=== PATIENT | female | born 1995 | race Caucasian/White ===

== ENCOUNTER → 2017-01-01 | Outpatient (CLI) | payer OTHER | END | disposition home or self-care (01) | LOC: C.FOODA 09:35 | PROVIDERS: ATTEND Physician Assistant | DX: R60.9 Edema, unspecified (principal) ==

== ENCOUNTER 2019-07-20 03:20 | Inpatient (IN) ==
[2019-07-20] MEDS ORDERED: LACTATED RINGER'S 1,000 ML IV PRN (04:12)
[2019-07-20] MEDS ORDERED: OXYTOCIN 30 UNITS/500 ML BAG IV PRN ×3 (04:12→14:08)
--- NOTE | 2019-07-20 04:40 | History & Physical Report ---
Date of Service July 20, 2019 Assessment & Plan (1) Uterine contractions at greater than 20 weeks of gestation: Patient is a 24 yo t 40.1 wks with ctxs, cervical change VSS Afebrile FHR reassuring GBS negative Being admitted for labor Denies pain management for now, likes to ambulate History of Present Illness Chief Complaint: Patient is a 24 yo at 40.1 wks, started to have ctxs last night around 1140 pm and got closer and more painful No LOF but has mild/ light VB since ctxs started +FM Her has been uncomplicated GBS negative Primary Care Provider: Suzi Esposito PA-C Allergies Allergy/AdvReac Type Severity Reaction Status Date / Time montelukast [From Singulair] AdvReac migraines, Verified 07/20/19 03:40 vomiting Home Medications Home Medications Medication Instructions Recorded Confirmed Type vit-iron fum-folic ac 1 tab PO DAILY 03/23/19 07/20/19 History [ Vitamin] albuterol sulfate [ProAir HFA] 2 puff INHALATION Q6H PRN 05/26/19 07/20/19 History Patient History Medical History Asthma controlled Scoliosis Minimal levocurvature of the mid lumbar and upper thoracic spine per 2017 x- ray Surgical History History of lumbar fusion T5-L1 fusion 2/2 scoliosis Social History Preferred Language: Slovenian Communication Ability: Effective Beliefs That Will Affect Care: None marital status: Current Living Situation: Spouse Other Information That Helps Us Care for You: No Feels Safe at Home: Yes Smoking Status: Never smoker Hx Alcohol Use: No (no ETOH with ) Hx Substance Use: No [employer] History Denies h/o HSV/ GC/ Chlamydia Review of Systems All systems reviewed & are unremarkable except as noted in HPI & below Physical Exam Constitutional: WD/WN, vitals as above well developed and well nourished Comfortably smiling Genitourinary: VE: 5 cm/ 70%/ -2, vertex Results & Data Vital Signs (Past 12 Hours) Vital Signs Temp Pulse Resp BP 07/20/19 03:46 36.5 C 72 18 118/79 07/20/19 03:32 36.5 C 72 18 118/79 Monitoring External Monitor 130's, categ I Tocodynamometer Ctxs 2-5 min
[2019-07-20 04:46] LABS: Hematocrit (blood only) 36.6 % (37-47); Hemoglobin 12.7 g/dL (12.0-16.0); Mean Corpuscular Hemoglobin 30.5 pg (25-34); Mean Corpuscular Volume 87.8 fL (80-100); Mean Platelet Volume 11.1 fL (7.4-10.4); Platelet Count 172 K/uL (130-400); RDW Coefficient of Variation 13.4 % (11.5-14.5); RDW Standard Deviation 42.6 fL (36.4-46.3); Red Blood Count 4.17 M/uL (4.2-5.4); White Blood Count 14.81 K/uL (4.8-10.8)
[2019-07-20 04:47] LABS: Mean Corpuscular Hgb Conc 34.7 g/dL (32-36)
[2019-07-20] MEDS ORDERED: BUTORPHANOL TARTRATE 1 MG/ML VIAL ONE ×2 (10:05→11:40)
[2019-07-20] MEDS ORDERED: BUTORPHANOL TARTRATE 1 MG/ML VIAL IV PRN (12:12)
[2019-07-20] MEDS ORDERED: fentaNYL citrate 100 MCG/2 ML VIAL ONE (12:27)
[2019-07-20] MEDS ORDERED: ePHEDrine sulfate 50 MG/ML AMP ONE (12:27)
[2019-07-20] MEDS ORDERED: BUPIVACAINE 0.25% 30 ML VIAL ONE (12:28)
[2019-07-20] MEDS ORDERED: fentaNYL 2MCG/ML ROPIV 1.25MG/ML 100 ML BAG EPI ONE (12:28)
[2019-07-20] MEDS ORDERED: SUPERCREAM 0.870% 15 GM JAR EXT PRN (14:08)
[2019-07-20] MEDS ORDERED: ACETAMINOPHEN W/CODEINE #3 1 TAB PO PRN (14:08)
[2019-07-20] MEDS ORDERED: DIPHTHERIA/TETANUS/PERTUSSIS 0.5 ML SYR/VIAL IM ONE (14:08)
[2019-07-20] MEDS ORDERED: HYDROCORTISONE ACETATE 25 MG SUPP PR PRN (14:08)
[2019-07-20] MEDS ORDERED: BENZOCAINE 20% AER SPR 82.5 GM CAN EXT PRN (14:08)
[2019-07-20] MEDS ORDERED: ACETAMINOPHEN 325 MG TAB PO PRN (14:08)
[2019-07-20] MEDS ORDERED: BISACODYL 10 MG SUPP PR PRN (14:08)
[2019-07-20] MEDS ORDERED: OXYCODONE/ACETAMINOPHEN 5mg/325mg TAB PO PRN (14:08)
--- NOTE | 2019-07-20 14:25 | Delivery Summary ---
DATE OF OPERATION: 07/20/2019 Mrs. Edwards was admitted in active labor at 40 weeks and 1 day. Blood type is A positive. She is now 1, para 1. She had a spontaneous unstimulated labor. Her only pain medications were about 2 doses of Stadol 1 mg IV. Membranes were ruptured surgically at about 8-9 cm and she went on to deliver a live male via direct occiput anterior position over an intact perineum. Infant was suctioned through the mouth and the nose. Shoulders were delivered without difficulty. Cord was clamped, cut by the patient's mother. Then cord blood was taken. With IV Pitocin, the placenta was removed intact. Inspection of the perineum revealed first degree vaginal laceration that extended up the left side of the labia majora. This whole area was infiltrated with local with epinephrine. The laceration was quite superficial and I used a running 3-0 chromic to approximate the vaginal mucosa out to beyond the hymenal ring and then approximate the skin of the labia with a continuous suture and then tied it. Following this, hemostasis was excellent. Vaginal exam revealed no hematoma formation or sponges in the vagina. Estimated blood loss was 300 mL. Apgars were deferred to the nurses and placenta was sent for exam due to light meconium. I attest to the content of the Intraoperative Record and any orders documented therein. Any exception s are noted below.
[2019-07-20] MEDS: DOCUSATE SODIUM 100 MG CAP PO SCH (20:08)
[2019-07-21] MEDS: IBUPROFEN 600 MG TAB PO PRN ×3 (01:41→23:05)
[2019-07-21 07:38] LABS: Hematocrit (blood only) 33.6 % (37-47); Hemoglobin 11.1 g/dL (12.0-16.0); Mean Corpuscular Hemoglobin 29.8 pg (25-34); Mean Corpuscular Volume 90.1 fL (80-100); Mean Platelet Volume 11.5 fL (7.4-10.4); Platelet Count 154 K/uL (130-400); RDW Coefficient of Variation 13.7 % (11.5-14.5); RDW Standard Deviation 44.8 fL (36.4-46.3); Red Blood Count 3.73 M/uL (4.2-5.4); White Blood Count 15.68 K/uL (4.8-10.8)
[2019-07-21] MEDS: DOCUSATE SODIUM 100 MG CAP PO SCH ×2 (08:23→20:25)
[2019-07-21] MEDS: FERROUS SULFATE 325 MG TAB PO SCH (08:23)
[2019-07-21] MEDS: PRENATAL VITAMIN 1 TAB PO SCH (08:24)
--- NOTE | 2019-07-21 10:03 | Obstetrical Progress Note ---
Date of Service July 21, 2019 Assessment & Plan (1) normal course: PPD #1 pt doing well continue day #1 care Subjective Ambulation: ambulating normally Voiding: no voiding problems Passing Gas:: Yes Diet Tolerance:: regular diet Lochia:: Small Feeding Type:: breast feeding Review of Systems All systems reviewed & are unremarkable except as noted in HPI & below Physical Exam Constitutional WD/WN, vitals as above well developed and well nourished Eyes PERRL, conjunctivae normal, anicteric sclerae Neck trachea midline, no thyromegaly Respiratory normal respiratory effort, lungs clear to auscultation Auscultation: no crackles, no rales and no wheezes Cardiovascular RRR, no murmur, no edema Gastrointestinal (Abdomen) normal bowel sounds, soft, nontender, no hepatosplenomegaly Uterus is below umbilicus Musculoskeletal no cyanosis or clubbing, extremities motor strength 5/5 Skin no rashes, warm and dry Neurologic patellar DTR's 2+ bilat, sensation intact Psychiatric A+Ox3, euthymic affect Genitourinary normal external appearance Results & Data Vital Signs (Past 12 Hours) Vital Signs Temp Pulse Resp BP Pulse Ox 07/21/19 08:10 36.7 C 76 20 107/66 100 07/21/19 04:20 36.6 C 86 18 122/68 07/20/19 23:20 36.9 C 80 18 116/65
[2019-07-21] MEDS ORDERED: BISACODYL 5 MG TABEC PO SCH (20:00)
[2019-07-22 06:30] LABS: Hematocrit (blood only) 34.9 % (37-47); Hemoglobin 11.5 g/dL (12.0-16.0)
[2019-07-22 08:57] LABS: Basophils # (auto) 0.03 K/uL (0-0.2); Basophils % (auto) 0.2 %; Eosinophils # (auto) 0.42 K/uL (0-0.5); Eosinophils % (auto) 3.3 %; Hematocrit (blood only) 36.7 % (37-47); Hemoglobin 12.5 g/dL (12.0-16.0); Immature Granulocytes # (auto) 0.04 K/uL (0.00-0.02); Immature Granulocytes % (auto) 0.3 %; Lymphocytes # (auto) 1.95 K/uL (1.2-3.4); Lymphocytes % (auto) 15.4 %; Mean Corpuscular Hemoglobin 30.6 pg (25-34); Mean Corpuscular Hgb Conc 34.1 g/dL (32-36); Mean Corpuscular Volume 89.7 fL (80-100); Mean Platelet Volume 10.7 fL (7.4-10.4); Monocytes # (auto) 0.78 K/uL (0.11-0.59); Monocytes % (auto) 6.1 %; Neutrophils # (auto) 9.48 K/uL (1.4-6.5); Neutrophils % (auto) 74.7 %; Platelet Count 185 K/uL (130-400); RDW Coefficient of Variation 13.8 % (11.5-14.5); RDW Standard Deviation 45.4 fL (36.4-46.3); Red Blood Count 4.09 M/uL (4.2-5.4)
--- NOTE | 2019-07-22 09:20 | Obstetrical Progress Note ---
Date of Service July 22, 2019 Subjective Patient is seen and examined. She feels well, no complaints. Ambulating without dizziness Voiding without difficulty Tolerating regular diet with out N&V Bleeding is minimal No fever/ chills/ CP/ SOB/ N&V/ Leg pain Breast feeding without problems Vital Signs Temp Pulse Resp BP Pulse Ox 07/22/19 00:10 36.7 C 67 19 118/74 97 07/21/19 16:30 36.5 C 90 18 119/75 98 07/21/19 11:56 36.7 C 76 20 108/68 Intake and Output 07/21/19 07/22/19 07/22/19 22:59 06:59 14:59 Intake Total 883.95 / 883.95 Balance 883.95 / 883.95 Intake: IV 883.95 / 883.95 Lr 1,000 ml @ 125 mls/hr IV . 383.95 / 383.95 Q8H PRN Rx#:[id number] PITOCIN 30 units In 500 ml @ 20 500 / 500 UNITS/HR 333.333 mls/hr IV . Q1H30M PRN Rx#:[id number] Lab Results 07/20/19 07/21/19 07/22/19 Range/Units 04:19 07:13 06:16 WBC 14.81 H 15.68 H (4.8-10.8) K/uL RBC 4.17 L 3.73 L (4.2-5.4) M/uL Hgb 12.7 11.1 L 11.5 L (12.0-16.0) g/dL Hct 36.6 L 33.6 L 34.9 L (37-47) % MCV 87.8 90.1 (80-100) fL MCH 30.5 29.8 (25-34) pg MCHC 34.7 33.0 (32-36) g/dL RDW Std Deviation 42.6 44.8 (36.4-46.3) fL RDW Coeff of Samm 13.4 13.7 (11.5-14.5) % Plt Count 172 154 (130-400) K/uL MPV 11.1 H 11.5 H (7.4-10.4) fL Immature Gran % (Auto) % Neut % (Auto) % Lymph % (Auto) % Florence % (Auto) % Eos % (Auto) % Baso % (Auto) % Immature Gran # (Auto) (0.00-0.02) K/uL Neut # (Auto) (1.4-6.5) K/uL Lymph # (Auto) (1.2-3.4) K/uL Florence # (Auto) (0.11-0.59) K/uL Eos # (Auto) (0-0.5) K/uL Baso # (Auto) (0-0.2) K/uL 07/22/19 Range/Units 08:34 WBC 12.70 H (4.8-10.8) K/uL RBC 4.09 L (4.2-5.4) M/uL Hgb 12.5 (12.0-16.0) g/dL Hct 36.7 L (37-47) % MCV 89.7 (80-100) fL MCH 30.6 (25-34) pg MCHC 34.1 (32-36) g/dL RDW Std Deviation 45.4 (36.4-46.3) fL RDW Coeff of Samm 13.8 (11.5-14.5) % Plt Count 185 (130-400) K/uL MPV 10.7 H (7.4-10.4) fL Immature Gran % (Auto) 0.3 % Neut % (Auto) 74.7 % Lymph % (Auto) 15.4 % Florence % (Auto) 6.1 % Eos % (Auto) 3.3 % Baso % (Auto) 0.2 % Immature Gran # (Auto) 0.04 H (0.00-0.02) K/uL Neut # (Auto) 9.48 H (1.4-6.5) K/uL Lymph # (Auto) 1.95 (1.2-3.4) K/uL Florence # (Auto) 0.78 H (0.11-0.59) K/uL Eos # (Auto) 0.42 (0-0.5) K/uL Baso # (Auto) 0.03 (0-0.2) K/uL PE: General: Alert, orientedx3, NAD Abd: soft, NT, fundus firm, below Umbilicus Perineum intact, Lochia rubra minimal Ext; NT, no edema AP: 24 yo s/p , ppd# 2 VSS Afebrile doing well Continue routine care All questions were answered D/C home , f/u in office Results & Data Vital Signs (Past 12 Hours) Vital Signs Temp Pulse Resp BP Pulse Ox 07/22/19 00:10 36.7 C 67 19 118/74 97
[2019-07-22] MEDS: FERROUS SULFATE 325 MG TAB PO SCH (09:30)
[2019-07-22] MEDS: DOCUSATE SODIUM 100 MG CAP PO SCH (09:30)
[2019-07-22] MEDS: PRENATAL VITAMIN 1 TAB PO SCH (09:30)
[2019-07-22] MEDS: IBUPROFEN 600 MG TAB PO PRN ×2 (09:30→13:43)
== END 2019-07-22 14:40 | disposition home or self-care (01) | DRG 807 ==
LOC: OPB 03:20 → 4S1 03:25 → 4S2 17:47

== ENCOUNTER 2021-06-03 13:37 | Inpatient (IN) ==
[2021-06-03] MEDS ORDERED: LACTATED RINGER'S 1,000 ML IV PRN (14:22)
[2021-06-03 14:40] LABS: Hemoglobin 13.1 g/dL (12.0-16.0); Mean Corpuscular Hemoglobin 31.7 pg (25-34); Mean Corpuscular Hgb Conc 33.6 g/dL (32-36); Mean Corpuscular Volume 94.4 fL (80-100); Mean Platelet Volume 10.8 fL (7.4-10.4); Platelet Count 208 K/uL (130-400); RDW Coefficient of Variation 12.8 % (11.5-14.5); RDW Standard Deviation 44.2 fL (36.4-46.3); Red Blood Count 4.13 M/uL (4.2-5.4); White Blood Count 11.12 K/uL (4.8-10.8)
--- NOTE | 2021-06-03 20:09 | Labor Progress Brief Note ---
Date of Service June 03, 2021 Subjective Reason For Note: Routine Evaluation and Change In Status Assessment & Plan Admission and Anticipated Discharge Date Admission Date: June 03, 2021 Physical Exam Constitutional: WD/WN, vitals as above comfortable Genitourinary: no vaginal lesions, no adnexal mass normal external appearance OB Exam Abdomen: + heart tones, + vertex, + estimated weight (7-8 lbs.) and + irregular contractions Manual OB Exam: + cervical dilation 6 cm and 7 cm, + cervical effacement 70% and + station -2 OB Exam Monitor Tracing: + external FHT monitor used, + external uterine monitor used, + category I and + normal FHT variability Will admit in early labor Results & Data ([facility]) Vital Signs (Past 12 Hours) Vital Signs Temp Pulse Resp BP 06/03/21 19:57 95 H 112/77 06/03/21 19:09 36.9 C 81 117/71 06/03/21 18:27 99 H 113/72 06/03/21 14:01 36.9 C 20 06/03/21 13:52 95 H 118/67
[2021-06-03] MEDS ORDERED: BUTORPHANOL TARTRATE 1 MG/ML VIAL IV PRN (20:26)
--- NOTE | 2021-06-03 22:00 | Labor Progress Brief Note ---
Date of Service June 03, 2021 Assessment & Plan Admission and Anticipated Discharge Date Admission Date: June 03, 2021 Physical Exam Genitourinary: Manual OB Exam: + cervical dilation 7 cm and 8 cm, + cervical effacement 70% and + station -2 OB Exam Monitor Tracing: + external FHT monitor used, + external uterine monitor used, + category I and + normal FHT variability Results & Data ([place]) Vital Signs (Past 12 Hours) Vital Signs Temp Pulse Resp BP 06/03/21 20:53 36.9 C 91 H 18 115/78 06/03/21 19:57 95 H 112/77 06/03/21 19:09 36.9 C 81 117/71 06/03/21 18:27 99 H 113/72 06/03/21 14:01 36.9 C 20 06/03/21 13:52 95 H 118/67
--- NOTE | 2021-06-03 23:03 | Labor Progress Brief Note ---
Date of Service June 03, 2021 Assessment & Plan Admission and Anticipated Discharge Date Admission Date: June 03, 2021 Physical Exam Genitourinary: Manual OB Exam: + cervical dilation 9 cm, + cervical effacement 100%, + station 0 and + amniotic fluid clear AROM with Amni-hook clear fluid Results & Data [facility]) Vital Signs (Past 12 Hours) Vital Signs Temp Pulse Resp BP 06/03/21 20:53 36.9 C 91 H 18 115/78 06/03/21 19:57 95 H 112/77 06/03/21 19:09 36.9 C 81 117/71 06/03/21 18:27 99 H 113/72 06/03/21 14:01 36.9 C 20 06/03/21 13:52 95 H 118/67
[2021-06-04] MEDS: OXYTOCIN 30 UNITS/500 ML BAG IV PRN ×2 (00:13→01:14)
--- NOTE | 2021-06-04 00:23 | Delivery Summary ---
Vaginal Delivery Summary Date of Service June 04, 2021 Vaginal Delivery Summary Delivery Note live male LULA over intact perineum with delayed cord clamping and Apgars 8/9 weight pending. Cord blood obtained followed by spontaneous delivery of intact placenta. No tears. EBL 100 ml. Final sponge and instrument count are correct. Mom and baby stable.
[2021-06-04] MEDS ORDERED: OXYTOCIN 30 UNITS/500 ML BAG IV PRN (00:42)
[2021-06-04] MEDS ORDERED: DIPHTHERIA/TETANUS/PERTUSSIS 0.5 ML SYR/VIAL IM ONE (00:42)
[2021-06-04] MEDS ORDERED: HYDROCORTISONE ACETATE 25 MG SUPP PR PRN (00:42)
[2021-06-04] MEDS ORDERED: BENZOCAINE 20% AER SPR 82.5 GM CAN EXT PRN (00:42)
[2021-06-04] MEDS ORDERED: ACETAMINOPHEN 325 MG TAB PO PRN (00:42)
[2021-06-04] MEDS ORDERED: bisacodyL 10 MG SUPP PR PRN (00:42)
[2021-06-04] MEDS ORDERED: SUPERCREAM 0.870% 15 GM JAR EXT PRN (00:42)
[2021-06-04] MEDS: IBUPROFEN 600 MG TAB PO PRN ×2 (01:09→07:04)
[2021-06-04] MEDS: DOCUSATE SODIUM 100 MG CAP PO SCH ×2 (08:30→21:24)
[2021-06-04] MEDS: PRENATAL VITAMIN 1 TAB PO SCH (08:30)
[2021-06-04] MEDS: FERROUS SULFATE 325 MG TAB PO SCH (08:30)
[2021-06-04] MEDS ORDERED: NON-FORMULARY MEDICATION (Prenatal Vit-Iron Fum-Folic Ac [Prenatal Vitamin] 27 mg iron- 0. PO SCH (09:00)
[2021-06-05 06:38] LABS: Hematocrit (blood only) 35.6 % (37-47); Mean Corpuscular Hemoglobin 31.5 pg (25-34); Mean Corpuscular Hgb Conc 33.7 g/dL (32-36); Mean Corpuscular Volume 93.4 fL (80-100); Mean Platelet Volume 10.8 fL (7.4-10.4); Platelet Count 185 K/uL (130-400); RDW Standard Deviation 44.4 fL (36.4-46.3); Red Blood Count 3.81 M/uL (4.2-5.4); White Blood Count 11.83 K/uL (4.8-10.8)
--- NOTE | 2021-06-05 07:46 | Obstetrical Progress Note ---
Date of Service June 05, 2021 Assessment & Plan Admission and Anticipated Discharge Date Admission Date: June 03, 2021 Subjective abdomen soft and non tender no calf tenderness ambulating well vaginal bleeding scant hgb 12.0 Results & Data ([facility]) Vital Signs (Past 12 Hours) Vital Signs Temp Pulse Resp BP Pulse Ox 06/04/21 23:32 36.6 C 68 16 108/73 96
[2021-06-05] MEDS: IBUPROFEN 600 MG TAB PO PRN (09:39)
[2021-06-05] MEDS: PRENATAL VITAMIN 1 TAB PO SCH (09:40)
[2021-06-05] MEDS: FERROUS SULFATE 325 MG TAB PO SCH (09:40)
[2021-06-05] MEDS ORDERED: bisacodyL 5 MG TABEC PO SCH (20:00)
== END 2021-06-05 13:45 | disposition home or self-care (01) | DRG 807 ==
LOC: OPB 13:37 → 4S1 13:40 → 4S2 06-04 02:55
DX: Z3A.37 37 weeks gestation of pregnancy; O80 Encounter for full-term uncomplicated delivery; Z37.0 Single live birth

== ENCOUNTER 2023-05-04 15:38 | Inpatient (IN) ==
[2023-05-04] MEDS ORDERED: LIDOCAINE 1% LOCAL 20 ML VIAL INFIL PRN (16:35)
[2023-05-04] MEDS ORDERED: OXYTOCIN 30 UNITS/500 ML BAG IV PRN ×2 (16:35→23:29)
--- NOTE | 2023-05-04 16:39 | Labor Progress Brief Note ---
Date of Service May 04, 2023 Assessment & Plan (1) : Plan: at 39+ weeks FHR CAT1 Ctx 4-6min VE 5-6/90/bulging membranes Results & Data Vital Signs (Past 12 Hours) Vital Signs Temp Pulse Resp BP O2 Del Method 05/04/23 15:52 36.8 C 18 Room Air 05/04/23 15:41 36.8 C 83 18 124/67
[2023-05-04 17:06] LABS: Hematocrit (blood only) 36.6 % (37.0-47.0); Hemoglobin 12.7 g/dl (12.0-16.0); Mean Corpuscular Hemoglobin 31.9 pg (25.0-34.0); Mean Corpuscular Hgb Conc 34.7 g/dL (32.0-36.0); Mean Platelet Volume 10.8 fL (9.4-12.4); Platelet Count 181 K/uL (130-400); RDW Coefficient of Variation 12.4 % (11.5-14.5); RDW Standard Deviation 41.3 fL (36.4-46.3); Red Blood Count 3.98 M/uL (4.20-5.40); White Blood Count 13.41 K/ul (4.8-10.8)
[2023-05-04] MEDS: LACTATED RINGER'S 1,000 ML IV PRN ×2 (17:06→19:05)
[2023-05-04] MEDS ORDERED: ePHEDrine sulfate 50 MG/ML AMP ONE (17:58)
[2023-05-04] MEDS ORDERED: LIDOCAINE 2%/EPINEPHRINE 1:200,000 20 ML PF ONE (17:58)
[2023-05-04] MEDS ORDERED: BUPIVACAINE 0.25% PF 30 ML VIAL ONE (17:58)
[2023-05-04] MEDS ORDERED: SODIUM CHLORIDE 0.9% PF INJ 10 ML VIAL ONE (17:58)
[2023-05-04] MEDS ORDERED: fentaNYL citrate PF 100 MCG/2 ML VIAL ONE (17:58)
[2023-05-04] MEDS ORDERED: fentaNYL 2MCG/ML ROPIVACAINE 1.25MG/ML 100 ML BAG EPI ONE (17:59)
[2023-05-04] MEDS ORDERED: NALBUPHINE HCL INJ 10 MG/ML AMP IV PRN (20:54)
[2023-05-04] MEDS ORDERED: SODIUM CHLORIDE 0.9% PF INJ 10 ML VIAL EPI STA (20:54)
[2023-05-04] MEDS ORDERED: ROPIVACAINE 0.5% PF 5 MG/ML 20 ML VIAL EPI PRN (20:54)
[2023-05-04] MEDS ORDERED: BUPIVACAINE 0.25% PF 30 ML VIAL EPI STA (20:54)
[2023-05-04] MEDS ORDERED: SODIUM CHLORIDE 0.9% PF INJ 10 ML VIAL EPI PRN (20:54)
[2023-05-04] MEDS ORDERED: fentaNYL citrate PF 100 MCG/2 ML VIAL EPI STA (20:54)
[2023-05-04] MEDS ORDERED: NALOXONE HCL 0.4 MG/1 ML VIAL/CARP IV PRN (20:54)
[2023-05-04] MEDS ORDERED: ONDANSETRON INJ 2 MG/ML 2 ML VIAL IV PRN (20:54)
[2023-05-04] MEDS ORDERED: fentaNYL 2MCG/ML ROPIVACAINE 1.25MG/ML 100 ML BAG EPI PRN (20:54)
[2023-05-04] MEDS ORDERED: LIDOCAINE 2%/EPINEPHRINE 1:200,000 20 ML PF EPI STA (20:54)
[2023-05-04] MEDS ORDERED: diphenhydrAMINE 50 MG/ML VIAL IV PRN (20:54)
[2023-05-04] MEDS ORDERED: NALOXONE HCL 1 MG in SODIUM CHLORIDE 0.9% 1000ML 1,000 ML IV PRN (20:54)
[2023-05-04] MEDS ORDERED: LIDOCAINE 2% MPF LOCAL 5 ML VIAL EPI PRN (20:54)
[2023-05-04] MEDS ORDERED: fentaNYL citrate PF 100 MCG/2 ML VIAL EPI PRN (20:54)
[2023-05-04] MEDS ORDERED: ePHEDrine sulfate 50 MG/ML AMP IV PRN (20:54)
[2023-05-04] MEDS ORDERED: BUPIVACAINE 0.25% PF 30 ML VIAL EPI PRN (20:54)
--- NOTE | 2023-05-04 20:56 | Anesthesiology Consultation ---
Date of Service May 04, 2023 Assessment & Plan Chart Review Chart Review: Patient NOT seen in Pre Admission Testing and Acceptable Risk for Labor Epidural Consults Requested none ASA ASA2 Proposed Anesthesia Anesthesia Type: Labor Epidural Risk / Benefits Reviewed With: PT / POA / Parent / Guardian, Accepts Plan and Informed Consent Obtained History Height/Weight Height: 5 ft 8 in Weight: 88 kg Allergies Allergy/AdvReac Type Severity Reaction Status Date / Time montelukast [From Singulair] AdvReac migraines, Verified 04/24/23 22:52 vomiting Medications Home Medications Medication Instructions Recorded Confirmed Last Taken vitamins-iron fumarate 27 1 tab PO DAILY 03/23/19 05/04/23 05/04/23 15:00 mg iron-folic acid 0.8 mg tablet ( Vitamin) Active Medications Generic Name Dose Route Start Last Admin Trade Name Freq PRN Reason Stop Dose Admin Lactated Ringer's 1,000 mls @ 125 mls/hr 05/04/23 16:35 05/04/23 19:05 Lr IV 05/06/23 16:34 125 mls/hr .Q8H PRN Administration L&D Protocol Protocol Past Medical History Medical History Asthma controlled Scoliosis Minimal levocurvature of the mid lumbar and upper thoracic spine per 2017 x- ray Spontaneous vaginal delivery [facility] [place] [place] 06/2019 Exercise / Class Metabolic Activity II 4-5 Yardwork/Stairs/Walk up hill Past Surgical History Surgical History History of lumbar fusion T5-L1 fusion 2/2 scoliosis Past Anesthesia History No Hx of Anesthesia Complications and No Family Hx of Anesthesia Complications History of PONV No Hx of PONV and No Hx of Motion Sickness Social History Smoking Status: Never smoker Do You Dip or Chew Tobacco: No Hx Alcohol Use: No Hx Substance Use: No substance use type: does not use Physical Exam Vital Signs Last Vital Signs Temp 36.8 C 05/04/23 19:15 Pulse 75 05/04/23 20:53 Resp 18 05/04/23 19:15 BP 105/59 L 05/04/23 20:47 Pulse Ox 100 05/04/23 20:53 O2 Del Method Room Air 05/04/23 15:52 ENMT Mouth: no dentition abnormality Thyromental Distance: > or= 3.5 Finger Breadths Mallampati Class: II Neck normal visual inspection Respiratory normal respiratory effort Auscultation: lungs clear to auscultation bilaterally Cardiovascular Rate/Rhythm: regular rate and regular rhythm Musculoskeletal thoracolumbar scar secondary to fusion surgery Psychiatric Orientation: alert Testing Laboratory Results 05/04/23 16:46
--- NOTE | 2023-05-04 22:08 | Labor Progress Brief Note ---
Date of Service May 04, 2023 Assessment & Plan (1) : Plan: Pt doing well No complaints Epidural analgesia on board FHR; CAT1 Ctx: 2-4min VE; 7/100/-1 AROM- Clear Anticipate VD Admission and Anticipated Discharge Date Admission Date: May 04, 2023 Results & Data Vital Signs (Past 12 Hours) Vital Signs Temp Pulse Resp BP Pulse Ox O2 Del Method 05/04/23 15:52 36.8 C 18 Room Air 05/04/23 22:03 97 H 100 05/04/23 22:02 81 101/60 05/04/23 21:58 78 100 05/04/23 21:53 90 100 05/04/23 21:49 86 100/63 05/04/23 21:48 87 100 05/04/23 21:43 85 98 05/04/23 21:38 84 99 05/04/23 21:33 84 104/60 99 05/04/23 21:28 74 99 05/04/23 21:23 88 100 05/04/23 21:18 79 100 05/04/23 21:17 83 106/65 05/04/23 21:13 73 100 05/04/23 21:08 80 100 05/04/23 21:03 92 H 100 05/04/23 21:02 73 106/65 05/04/23 20:58 80 100 05/04/23 20:53 75 100 05/04/23 20:48 85 96 05/04/23 20:47 83 105/59 L 05/04/23 20:43 87 107/56 L 100 05/04/23 20:38 78 100 05/04/23 20:33 69 100 05/04/23 20:28 68 100 05/04/23 20:23 85 100 05/04/23 20:18 69 100 05/04/23 20:13 77 100 05/04/23 20:08 80 100 05/04/23 20:03 77 123/62 100 05/04/23 19:58 107 H 100 05/04/23 19:53 93 H 100 05/04/23 19:48 93 H 100 05/04/23 19:47 88 87/51 L 05/04/23 19:43 98 H 100 05/04/23 19:38 92 H 100 05/04/23 19:33 74 100 05/04/23 19:32 103 H 95/54 L 05/04/23 19:28 85 100 05/04/23 19:23 87 100 05/04/23 19:18 94 H 100 05/04/23 19:17 81 93/55 L 05/04/23 19:15 36.8 C 139 H 18 94/51 L 05/04/23 19:13 100 05/04/23 19:13 84 05/04/23 19:13 109 H 99/55 L 05/04/23 19:11 92 H 97/55 L 05/04/23 19:08 93 H 100 05/04/23 19:09 94 H 96/52 L 05/04/23 19:07 93 H 101/57 L 05/04/23 19:05 101 H 103/59 L 05/04/23 19:03 96 H 103/58 L 100 05/04/23 19:01 114 H 105/59 L 05/04/23 18:59 94 H 104/55 L 05/04/23 18:58 106 H 100 05/04/23 18:57 103 H 109/59 L 05/04/23 18:55 108 H 119/71 05/04/23 18:53 97 H 120/73 100 05/04/23 18:51 93 H 121/76 05/04/23 18:49 87 131/80 05/04/23 18:48 98 H 100 05/04/23 18:47 106 H 131/72 05/04/23 18:45 109 H 132/70 05/04/23 18:43 123 H 99 05/04/23 18:44 118 H 148/88 H 05/04/23 18:38 94 H 100 05/04/23 17:39 83 125/75 05/04/23 15:41 36.8 C 83 18 124/67
[2023-05-04] MEDS ORDERED: BENZOCAINE 20% SPRY 85 APPLN/85 GM CAN EXT PRN (23:29)
[2023-05-04] MEDS ORDERED: ACETAMINOPHEN 325 MG TAB PO PRN (23:29)
[2023-05-04] MEDS ORDERED: DIPHTHERIA/TETANUS/PERTUSSIS Vaccine (Tdap, Age 7+yrs) 0.5mL SYR/VL IM ONE (23:29)
[2023-05-04] MEDS ORDERED: miSOPROStoL 200 MCG TAB PR ONE (23:29)
[2023-05-04] MEDS ORDERED: HYDROCORTISONE ACETATE 25 MG SUPP PR PRN (23:29)
--- NOTE | 2023-05-04 23:34 | Delivery Summary ---
Vaginal Delivery Summary Date of Service May 04, 2023 Vaginal Delivery Summary DELIVERY NOTE Patient pushed twice to deliver a live male in left occiput anterior presentation there was no nuchal cord which was easily reduced. Infant was delivered and placed on mother's abdomen. Delayed cord clamping was performed. Cord blood is obtained Cord gasses are not obtained Meconium is absent Placenta is spontaneously delivered. Placenta appears grossly normal and has 3 vessel cord Inspection of the perineum showed no laceration. Rectal exam post repair showed good sphincter tone no sutures palpated in the rectum. Estimated blood loss is 450 cc per Infants weight and scores are in the pediatric record Mother and baby are stable in in the recovery
[2023-05-05] MEDS ORDERED: METHYLERGONOVINE MALEATE 0.2 MG/ML AMP ONE (00:29)
[2023-05-05] MEDS: IBUPROFEN 600 MG TAB PO PRN ×5 (00:32→20:35)
[2023-05-05 06:51] LABS: Hematocrit (blood only) 33.2 % (37.0-47.0); Hemoglobin 11.7 g/dl (12.0-16.0); Mean Corpuscular Hemoglobin 32.1 pg (25.0-34.0); Mean Corpuscular Hgb Conc 35.2 g/dL (32.0-36.0); Mean Corpuscular Volume 91.2 fL (80.0-100.0); Mean Platelet Volume 11.2 fL (9.4-12.4); Platelet Count 154 K/uL (130-400); RDW Coefficient of Variation 12.5 % (11.5-14.5); RDW Standard Deviation 41.5 fL (36.4-46.3); Red Blood Count 3.64 M/uL (4.20-5.40); White Blood Count 17.01 K/ul (4.8-10.8)
[2023-05-05] MEDS: PRENATAL VITAMIN 1 TAB PO SCH (08:31)
[2023-05-05] MEDS: DOCUSATE SODIUM 100 MG CAP PO SCH ×2 (08:31→20:36)
--- NOTE | 2023-05-05 10:02 | Obstetrical Progress Note ---
Date of Service May 05, 2023 Assessment & Plan (1) normal course: Pt doing well no complaints anticipate disch tomorrow Subjective Ambulation: ambulating normally Voiding: no voiding problems Passing Gas:: Yes Diet Tolerance:: regular diet Lochia:: Small Feeding Type:: breast feeding Review of Systems All systems reviewed & are unremarkable except as noted in HPI & below Physical Exam Constitutional WD/WN, vitals as above well developed and well nourished Eyes PERRL, conjunctivae normal, anicteric sclerae Neck trachea midline, no thyromegaly Respiratory normal respiratory effort, lungs clear to auscultation Auscultation: no crackles, no rales and no wheezes Cardiovascular RRR, no murmur, no edema Gastrointestinal (Abdomen) normal bowel sounds, soft, nontender, no hepatosplenomegaly Uterus is below umbilicus Musculoskeletal no cyanosis or clubbing, extremities motor strength 5/5 Skin no rashes, warm and dry Neurologic patellar DTR's 2+ bilat, sensation intact Psychiatric A+Ox3, euthymic affect Genitourinary normal external appearance Results & Data Vital Signs (Past 12 Hours) Vital Signs Temp Pulse Pulse Resp BP BP Pulse Ox 05/05/23 07:50 37.3 C 78 16 103/66 97 05/05/23 02:18 37.1 C 73 18 108/72 96 05/05/23 01:33 85 115/76 05/05/23 01:03 63 115/65 05/05/23 00:34 77 137/62 05/05/23 00:17 69 114/68 05/05/23 00:02 64 116/63 05/04/23 23:48 70 111/58 L 05/04/23 23:38 87 116/73 05/04/23 23:18 107 H 96 05/04/23 23:13 94 H 100 05/04/23 23:08 103 H 100 05/04/23 23:03 103 H 100 05/04/23 23:02 96 H 114/73 05/04/23 22:58 82 100 05/04/23 22:53 83 100 05/04/23 22:48 86 100 05/04/23 22:47 100 H 118/73 05/04/23 22:43 97 H 100 05/04/23 22:38 89 100 05/04/23 22:33 89 100 08/14/23 22:32 80 116/55 L 05/04/23 22:28 88 100 05/04/23 22:23 97 H 100 05/04/23 22:18 85 100 05/04/23 22:19 88 115/62 05/04/23 22:13 93 H 100 05/04/23 22:08 96 H 100 05/04/23 22:03 97 H 100 05/04/23 22:02 81 101/60 O2 Del Method 05/05/23 07:50 Room Air 05/05/23 02:18 Room Air 05/05/23 01:33 05/05/23 01:03 05/05/23 00:34 05/05/23 00:17 05/05/23 00:02 05/04/23 23:48 05/04/23 23:38 05/04/23 23:18 05/04/23 23:13 05/04/23 23:08 05/04/23 23:03 05/04/23 23:02 05/04/23 22:58 05/04/23 22:53 05/04/23 22:48 05/04/23 22:47 05/04/23 22:43 05/04/23 22:38 05/04/23 22:33 05/04/23 22:32 05/04/23 22:28 05/04/23 22:23 05/04/23 22:18 05/04/23 22:19 05/04/23 22:13 05/04/23 22:08 05/04/23 22:03 05/04/23 22:02
[2023-05-05] MEDS ORDERED: bisacodyL 5 MG TABEC PO SCH (20:00)
[2023-05-06 06:20] LABS: Hematocrit (blood only) 35.1 % (37.0-47.0); Hemoglobin 12.3 g/dl (12.0-16.0)
[2023-05-06] MEDS: PRENATAL VITAMIN 1 TAB PO SCH (08:22)
[2023-05-06] MEDS: IBUPROFEN 600 MG TAB PO PRN (08:22)
[2023-05-06] MEDS: DOCUSATE SODIUM 100 MG CAP PO SCH (08:22)
--- NOTE | 2023-05-06 09:15 | Obstetrical Progress Note ---
Date of Service May 06, 2023 Subjective Ambulation: ambulating normally Voiding: no voiding problems Passing Gas:: Yes Diet Tolerance:: regular diet Lochia:: Small Feeding Type:: breast feeding Current Pain Level(1-10): 0 doing well Physical Exam Constitutional WD/WN, vitals as above Gastrointestinal (Abdomen) fundus firm Musculoskeletal Extremities: extremities normal to inspection Skin no rashes, warm and dry Neurologic patellar DTR's 2+ bilat, sensation intact Psychiatric A+Ox3, euthymic affect Results & Data Vital Signs (Past 12 Hours) Vital Signs Temp Pulse Pulse Resp BP Pulse Ox O2 Del Method 05/06/23 08:00 36.6 C 61 18 104/71 97 Room Air 05/05/23 23:42 36.8 C 68 16 112/70 Laboratory Results 05/04/23 05/05/23 05/06/23 16:46 06:25 05:59 WBC 13.41 H 17.01 H RBC 3.98 L 3.64 L Hgb 12.7 11.7 L 12.3 Hct 36.6 L 33.2 L 35.1 L MCV 92.0 91.2 MCH 31.9 32.1 MCHC 34.7 35.2 RDW Std Deviation 41.3 41.5 RDW Coeff of Samm 12.4 12.5 Plt Count 181 154 MPV 10.8 11.2
[2023-05-06] MEDS ORDERED: bisacodyL 10 MG SUPP PR PRN (23:29)
== END 2023-05-06 11:50 | disposition home or self-care (01) | DRG 807 ==
LOC: OPB 15:38 → 4S1 15:39 → 4E2 05-05 01:50